=== PATIENT | male | born 1955 | race Caucasian/White ===

== ENCOUNTER → 2017-01-13 | Outpatient (CLI) | payer OTHER ==
--- NOTE | 2017-01-13 09:17 | PCVCIMAG ---
APPROVED REPORT Patient Location: Out-Patient Indications Stenosis CAD Current Smoker Doppler Spectral Velocity Analysis PSV / EDVPSV / EDV ECA (R) 97 / 23 cm/sECA (L) 86 / 19 cm/s dICA (R) 85 / 31 cm/sdICA (L) 48 / 17 cm/s Anton (R) 80 / 31 cm/smICA (L) 86 / 30 cm/s pICA (R) 69 / 24 cm/spICA (L) 75 / 23 cm/s Bulb (R) 76 / 23 cm/sBulb (L) 77 / 20 cm/s dCCA (R) 81 / 23 cm/sdCCA (L) 84 / 26 cm/s mCCA (R) 78 / 20 cm/smCCA (L) 98 / 24 cm/s Vert (R) 18 / 0 cm/sVert (L) 63 / 21 cm/s ICA/CCA 1.05ICA/CCA 1.02 Basic Measurements Blood Pressure: Pulses: Right Left RightLeft Brachial(Sitting) 127/51dvLn028/78mmHgTemporal Findings The right carotid bulb has moderate calcified plaque. The right proximal internal carotid artery shows <40% stenosis. The right common carotid artery shows no significant stenosis. The right external carotid artery shows no significant stenosis. The left carotid bulb has moderate heterogeneous plaque. The left proximal internal carotid artery shows <40% stenosis. The left common carotid artery shows no significant stenosis. The left external carotid artery shows no significant stenosis. Conclusion 1. Right internal carotid artery stenosis (<40%) 2. Left internal carotid artery stenosis (<40%) 3. Antegrade vertebral flow
--- NOTE | 2017-01-13 10:15 | PCVCIMAG ---
APPROVED REPORT Exam: Stress Echocardiogram Indication: CABG, CAD Patient Location: Echo lab Stress Nurse: Tonya Malone RN Status: routine HR: 65 bpm Procedure The patient underwent an Exercise Stress Test using the Jerod Protocol. Blood pressure, heart rate, and EKG were monitored. An Echocardiogram was performed by power lineman technician in four stages in quad fashion. At peak stress, four selected images were obtained and placed side by side with resting images for comparison. Stress Test Details Stress Test: Exercise stress testing was performed using a Jerod protocol. HR Resting HR: 65 bpmMax Heart Rate (APMHR): 160 bpm Max HR Achieved: 139 bpmTarget HR (85% APMHR): 136 bpm % of APMHR: 86 BP Resting BP: 100/80 mmHg Max BP: 152/78 mmHg ECG Resting ECG: Sinus Rhythm Stress ECG: Sinus Rhythm ST Change: Normal Maximum ST Deviation: 0 mm Recovery ECG: Sinus Rhythm Recovery ST Change: Normal Recovery ST Deviation: 0 mm Recovery Arrhythmia: occasional VPC Clinical Reason for Termination: Maximal effort Stress Symptoms: Dyspnea Exercise duration: 9 min 15 sec Highest Stage Achieved: Stage 2: 2.5 mph at 12% grade. Exercise capacity: 11.00 METs Overall Exercise Capacity for Age: Average Angina Score: None Stress ECG Conclusion Clinical: Non-ischemic ECG: Non-ischemic Quinn Treadmill Score is 9.0 which is Low risk. Pre-Stress Echo The resting Echocardiogram showed normal left ventricular contractility with an estimated Ejection Fraction of about 45-50%. The resting Echocardiogram demonstrated wall motion abnormality in the basal inferoseptal and inferolateral christie. Post-Stress Echo The stress Echocardiogram showed normal left ventricular contractility with an estimated Ejection Fraction of about >55%. No new regional wall motion abnormalities Conclusion Clinical Response: Non-ischemic Exercise Capacity: Average Stress ECG Response: Non-ischemic Stress Echo Images: Non-ischemic No clinical, EKG or echocardiographic evidence for ischemia. <Conclusion> No clinical, EKG or echocardiographic evidence for ischemia.
== END | disposition home or self-care (01) ==
LOC: PCVCIMAG 07:59
PROVIDERS: ATTEND Internal Medicine
DX: I65.23 Occlusion and stenosis of bilateral carotid arteries (principal); I25.5 Ischemic cardiomyopathy; I25.10 Atherosclerotic heart disease of native coronary artery without angina pectoris; I10 Essential (primary) hypertension; E11.9 Type 2 diabetes mellitus without complications; F17.210 Nicotine dependence, cigarettes, uncomplicated; Z95.1 Presence of aortocoronary bypass graft
CPT/HCPCS: 93325; 93351; 93880

== ENCOUNTER → 2017-12-25 | Outpatient (CLI) | payer OTHER | END | disposition home or self-care (01) | LOC: PCVCIMAG 13:45 | DX: I25.10 Atherosclerotic heart disease of native coronary artery without angina pectoris (principal); I25.5 Ischemic cardiomyopathy; I10 Essential (primary) hypertension; E11.9 Type 2 diabetes mellitus without complications; Z95.1 Presence of aortocoronary bypass graft | CPT/HCPCS: 93325; 93351 ==

== ENCOUNTER → 2018-12-14 | Outpatient (CLI) | payer OTHER ==
--- NOTE | 2018-12-14 11:47 | PCVCIMAG ---
APPROVED REPORT Study performed: 12/14/2018 10:28:36 EXAM: Comprehensive 2D, Doppler, and color-flow Echocardiogram Patient Location: Echo lab Status: routine BSA: 1.98 HR: 64 bpmBP: 136/76 mmHg Rhythm: NSR Other Information Study Quality: Adequate Risk Factors: Cardiac Risk Factors: DM, HTN Indications CAD ischemic cardiomyopathy 2D Dimensions IVSd: 11.05 (7-11mm) LVDd: 50.08 mm PWd: 12.31 (7-11mm)Ascending Ao: 39.75 (22-36mm) LVDs: 41.91 (25-40mm) Left Atrium: 49.20 (27-40mm) Aortic Root: 38.66 mm LV Single Plane 4CH: 57.84 % LV Single Plane 2CH: 55.45 % Biplane EF: 56.4 % Volumes Left Atrial Volume (Systole) Single Plane 4CH: 71.06 mLSingle Plane 2CH: 83.12 mL LA ESV Index: 42.00 mL/m2 Aortic Valve AoV Peak Adis.: 1.26 m/s AO Peak Gr.: 6.35 mmHgLVOT Max P.38 mmHg LVOT Max V: 1.16 m/s Mitral Valve E/A Ratio: 1.3 MV Decel. Time: 262.43 ms MV E Max Adis.: 0.77 m/s MV A Adis.: 0.61 m/s IVRT: 117.65 ms Pulmonary Valve PV Peak Adis.: 1.29 m/sPV Peak Gr.: 6.68 mmHg Pulmonary Vein P Vein S: 0.29 m/sP Vein A: 0.42 m/s P Vein D: 0.47 m/sP Vein A Dur.: 131.5 msec P Vein S/D Ratio: 0.62 Tricuspid Valve TR Peak Adis.: 2.60 m/s TR Peak Gr.: 27.02 mmHg TV Vmax: 0.74 m/s Left Ventricle The left ventricle is normal size. There is normal LV segmental wall motion. There is normal left ventricular wall thickness. Left ventricular systolic function is normal. The left ventricular ejection fraction is within the normal range. LVEF is 55-60%. The left ventricular diastolic function is normal. Right Ventricle The right ventricle is normal size. The right ventricular systolic function is normal. Atria Left atrium is moderately dilated. Right atrium is mildly dilated. Aortic Valve The aortic valve is normal in structure. No aortic regurgitation is present. There is no aortic valvular stenosis. Mitral Valve The mitral valve is normal in structure. There is trace mitral valve regurgitation noted. No evidence of mitral valve stenosis. Tricuspid Valve The tricuspid valve is normal in structure. Mild tricuspid regurgitation with PAP of 30 mmHg. Pulmonic Valve The pulmonary valve is normal in structure. Trace pulmonic regurgitation. Great Vessels Aortic root is mildly dilated to 3.9 cm. Ascending aorta is dilated to 4.0 cm. IVC is normal in size and collapses >50% with inspiration. Pericardium There is no pericardial effusion. There is no pleural effusion. <Conclusion> Left ventricular systolic function is normal. There is normal LV segmental wall motion. LVEF is 55-60%. Normal diastolic functiom Left atrium is moderately dilated. The aortic valve is normal in structure. No aortic regurgitation or stenosis The mitral valve is normal in structure. Trace mitral valve regurgitation. Mild tricuspid regurgitation with pulmonary artery pressure of 30 mmHg. Ascending aorta is dilated to 4.0 cm. There is no pericardial effusion.
== END | disposition home or self-care (01) ==
LOC: PCVCIMAG 10:25
PROVIDERS: ATTEND Internal Medicine
DX: I07.1 Rheumatic tricuspid insufficiency (principal); I25.5 Ischemic cardiomyopathy; I25.10 Atherosclerotic heart disease of native coronary artery without angina pectoris; I10 Essential (primary) hypertension; E78.5 Hyperlipidemia, unspecified; E11.9 Type 2 diabetes mellitus without complications; F17.210 Nicotine dependence, cigarettes, uncomplicated; Z79.82 Long term (current) use of aspirin; Z79.899 Other long term (current) drug therapy
CPT/HCPCS: 93306